=== PATIENT | male | born 1980 | race African-American/Black ===

== ENCOUNTER 2020-11-10 18:34 | Emergency (ER) | payer SELFPAY ==
[~2020-11-10] VITALS: Ht 172.7 cm; Wt 61.3 kg
[2020-11-10 20:09] VITALS: BP 111/90
[2020-11-10] MEDS ORDERED: IBUPROFEN 200 MG TABLET. PO ONE (20:15)
--- NOTE | 2020-11-10 20:54 | RAD ---
XR EXAM OF ANKLE_LEFT 3V 11/10/2020 8:25 PM INDICATION: Twisted ankle COMPARISON: None available. TECHNIQUE: 3 views of the left ankle are provided. FINDINGS/ IMPRESSION: There is no acute fracture or dislocation. Joint spaces are maintained. Bone mineralization is within normal limits. Mild ankle soft tissue tissue swelling. There is no soft tissue gas or osseous erosio n. No radiopaque foreign body. Electronically signed by: Mila Newsome MD (11/10/2020 8:51 PM) BENJAIMN
--- NOTE | 2020-11-10 21:54 | PHYS DOC ---
Past Medical History Past Medical History: No Pertinent History (CHRISS HOWELL APRN) Past Surgical History: No Surgical History (CHRISS HOWELL APRN) Smoking Status: Never Smoker Alcohol Use: Occasionally Drug Use: None (CHRISS HOWELL APRN) General Adult EDM: Chief Complaint: FOOT INJURY PAIN HPI: HPI: Patient is a 40-year-old male presents emergency department complaining he rolled his ankle yesterday approximately 5 PM. Patient rates his pain at a 2 out of 10 pain. Denies other physical complaints or physical injury reports taking a 200 mg Motrin tablet at approximately 1730 today patient denies allergies to medications. (CHRISS HOWELL APRN) Review of Systems: Review of Systems: 14 body systems of review of systems have been reviewed. See HPI for pertinent positives and negative responses, otherwise all other systems are negative, nonpertinent or noncontributory. Constitutional: Negative except as outlined in HPI above. Skin: Negative except as outlined in HPI above. Eyes: Negative except as outlined in HPI above. HENT: Negative except as outlined in HPI above. Respiratory: Negative except as outlined in HPI above. Cardiovascular: Negative except as outlined in HPI above. GI: Negative except as outlined in HPI above. : Negative except as outlined in HPI above. Musculoskeletal: Negative except as outlined in HPI above. Integument: Negative except as outlined in HPI above. Neurologic: Negative except as outlined in HPI above. Endocrine: Negative except as outlined in HPI above. Lymphatic: Negative except as outlined in HPI above. Psychiatric: Negative except as outlined in HPI above. (CHRISS HOWELL APRN) Heart Score: C/O Chest Pain: No Risk Factors: Risk Factors: DM, Current or recent (<one month) smoker, HTN, HLP, family history of CAD, obesity. Risk Scores: Score 0 - 3: 2.5% MACE over next 6 weeks - Discharge Home Score 4 - 6: 20.3% MACE over next 6 weeks - Admit for Clinical Observation Score 7 - 10: 72.7% MACE over next 6 weeks - Early Invasive Strategies (CHRISS HOWELL APRN) Current Medications: Current Medications Medications (Trade) Dose Ordered Sig/Karen Start Time Stop Time Status Last Admin Dose Admin Ibuprofen (Motrin) 600 mg 1X ONCE 11/10/20 20:15 11/10/20 20:16 DC 11/10/20 20:46 600 MG (CHRISS HOWELL APRN) Allergies: Allergies: Allergies Coded Allergies Type Severity Reaction Last Updated Verified No Known Drug Allergies 11/07/15 No (CHRISS HOWELL APRN) Physical Exam: PE: Constitutional: Well developed, well nourished, no acute distress, non-toxic appearance. 40-year-old male in no apparent distress. HENT: Normocephalic, atraumatic. Eyes: Conjunctiva normal, no discharge. Neck: Normal range of motion, no stridor. Cardiovascular: No cyanosis appreciated, distal cap refill less than 2 seconds. Lungs & Thorax: Patient is in no respiratory distress, no audible adventitious lung sounds appreciated. Abdomen: Nontender, no abnormalities noted. Skin: Warm, dry, no erythema, no rash. Back: No tenderness, no deformities. Extremities: No tenderness, no cyanosis, no clubbing, ROM intact, no edema. Except for left ankle, lateral malleolus swelling, limited passive range of motion related to pain, 2+ dorsalis pedis/posterior tibial pulse. Distal cap refills less than 2 seconds per no pain of the proximal tib-fib area appreciated. No deformity, no crepitus appreciated. Neurologic: Alert and oriented X 3, normal motor function, normal sensory function, no focal deficits noted. Psychologic: Affect normal, judgement normal, mood normal. (CHRISS HOWELL APRN) Current Patient Data: Vital Signs: Vital Signs Date Time Temp Pulse Resp B/P (MAP) Pulse Ox O2 Delivery O2 Flow Rate FiO2 11/10/20 20:09 97.7 105 16 111/90 (97) 100 Room Air 97.7 (CHRISS HOWELL APRN) EKG: EKG: [] (CHRISS HOWELL APRN) Radiology/Procedures: Radiology/Procedures: PATIENT: MARQUES AREVALO ACCOUNT: [id number] : 1980 LOCATION: ER AGE: 40 SEX: M EXAM STATUS: REG ER ORD. PHYSICIAN: CHRISS HOWELL APRN REASON: Twisted ankle PROCEDURE: ANKLE LEFT 3V XR EXAM OF ANKLE_LEFT 3V 11/10/2020 8:25 PM INDICATION: Twisted ankle COMPARISON: None available. TECHNIQUE: 3 views of the left ankle are provided. FINDINGS/ IMPRESSION: There is no acute fracture or dislocation. Joint spaces are maintained. Bone mineralization is within normal limits. Mild ankle soft tissue tissue swelling. There is no soft tissue gas or osseous erosion. No radiopaque foreign body. Electronically signed by: Mila Newsome MD (11/10/2020 8:51 PM) [facility] (CHRISS HOWELL APRN) Course & Med Decision Making: Course & Med Decision Making Pertinent Labs and Imaging studies reviewed. (See chart for details) 40-year-old male, vital signs reviewed, presents to the emergency department concerning ankle pain after twisting ankle yesterday evening. Physical examination consistent with patient's explanation of events. Will order x-ray of left ankle, give pain medication in the ED today. X-ray nonconcerning for acute fracture, will Mario wrap/ankle stirrup splint, RICE therapy. Patient is amenable to ED discharge planning. Discussed with the pat ient all findings and diagnostic testing as well as the need to follow-up with their primary care provider for further evaluation and treatment or return to the ED if any new or worsening symptoms. Strict return precautions were also discussed at length, the patient voiced understanding and agreement with the discharge planning. The patient was nontoxic in appearance, in no apparent distress, and hemodynamically stable at the time of disposition. (CHRISS HOWELL APRN) Course & Med Decision Making I was the Attending physician on the above date of service of this patient. This patient was evaluated, examined, treated, and dispositioned from the emergency department by the mid-level practitioner. Although I was working at the time , no assistance was requested. Electronically signed, Esequiel Breaux DO (ESEQUIEL BREAUX DO) Annie Disclaimer: Annie Disclaimer: This electronic medical record was generated, in whole or in part, using a voice recognition dictation system. (CHRISS HOWELL APRN) Departure Departure Impression: Primary Impression: Left ankle sprain Qualified Codes: S93.402A - Sprain of unspecified ligament of left ankle, initial encounter Disposition: HOME / SELF CARE / HOMELESS Condition: GOOD Referrals: NO PCP (PCP) THELMA NOLAND MD Patient Instructions: Ankle Sprain Additional Instructions: You were seen for left ankle pain after rolling her ankle yesterday afternoon. An x-ray was performed, there is no broken ankle. Please use RICE therapy as we discussed. Use ankle stirrup splint for comfort over the next 5 to 7 days. I have given a correctional treatment specialist to follow-up with if ongoing ankle pain greater than 7 days. Otherwise follow-up with your primary care physician for ongoing pain management. Please return to the emergency department for worsening symptoms or other concerns. Thank you for visiting our Emergency Department. It was a pleasure taking care of you today in the emergency department and we appreciate you trusting us with your care. If any additional problems come up don't hesitate to return to visit us. Please follow up with your primary care provider so they can plan additional care if needed and know about the problem that you had. If symptoms worsen come back to the Emergency Department. Any concerning symptoms that start such as chest pain, shortness of air, weakness or numbness on one side of the body, running high fevers or any other concerning symptoms return to the ER. EMERGENCY DEPARTMENT GENERAL DISCHARGE INSTRUCTIONS Thank you for coming to [facility] Emergency Department (ED) today and trusting us with you care. We trust that you had a positive experience in our Emergency Department. If you wish to speak to the department management, you may call the Director at [phone]. YOUR FOLLOW UP INSTRUCTIONS ARE FOLLOWS: 1. Do you have a private Doctor? If you do not have a private doctor, please ask for a resource list of physicians or clinics that may be able to assist you with follo w up care. 2. The Emergency Physicain has interpreted your x-rays. The X-Ray specialist will also review them. If there is a change in the findings, you will be notified in 48 hours when at all possible. 3. A lab test or culture has been done, your results will be reviewed and you will be notified if you need a change in treatment. ADDITIONAL INSTRUCTIONS AND INFORMATION: 1. Your care today has been supervised by a physician who is specially trained in emergency care. Many problems require more than one evaluation for a complete diagnosis and treatment. We recommend that you schedule your follow up appointment as rec ommended to ensure complete treatment of you illness or injury. If you are unable to obtain follow up care and continue to have a problem, or if your condition worsens, we recommend that you return to the ED. 2. We are not able to safely determine your condition over the phone nor are we able to give sound medical advice over the phone. For these safety reasons, if you call for medical advice we will ask you to come to the ED for further evaluation. 3. If you have any questions regarding these discharge instructions please call the ED at [phone]. SAFETY INFORMATION: In the interest of safety, wellness, and injury prevention; we encourage you to wear your sealbelt, if you smoke; quite smoking, and we encourage family to use a protective helmet for bicycling and other sporting events that present an increased risk for head injury. IF YOUR SYMPTOMS WORSEN OR NEW SYMPTOMS DEVELOP, OR YOU HAVE CONCERNS ABOUT YOUR CONDITION; OR IF YOUR CONDITION WORSENS WHILE YOU ARE WAITING FOR YOUR FOLLOW UP APPOINTMENT; EITHER CONTACT YOUR PRIMARY CARE DOCTOR, THE PHYSICIAN WHOSE NAME AND NUMBER YOU WERE GIVEN, OR RETURN TO THE ED IMMEDIATELY. CHRISS HOWELL APRN Nov 10, 2020 21:54 ESEQUIEL BREAUX DO Nov 12, 2020 01:04
== END 2020-11-10 22:13 | disposition home or self-care (01) ==
LOC: ER 18:34
DX: S93.402A Sprain of unspecified ligament of left ankle, initial encounter (principal); X50.9XXA Other and unspecified overexertion or strenuous movements or postures, initial encounter; Y93.89 Activity, other specified; Y92.89 Other specified places as the place of occurrence of the external cause; Y99.8 Other external cause status
CPT/HCPCS: 29515; 73610; 99283

== ENCOUNTER 2021-02-27 03:04 | Emergency (ER) | payer SELFPAY ==
[~2021-02-27] VITALS: Ht 175.3 cm; Wt 61.4 kg
[2021-02-27 03:15] VITALS: BP 142/99
[2021-02-27] MEDS ORDERED: KETOROLAC 30 MG/ML VIAL. IM ONE (04:00)
[2021-02-27] MEDS ORDERED: DEXAMETHASONE 4 MG TABLET PO ONE (04:00)
--- NOTE | 2021-02-27 04:09 | PHYS DOC ---
Past Medical History Past Medical History: No Pertinent History Past Surgical History: No Surgical History Smoking Status: Never Smoker Alcohol Use: None Drug Use: None, Marijuana General Adult EDM: Chief Complaint: BACK PAIN OR INJURY HPI: HPI: Mr. Garzon is a 40 yo male who presents to the ED with low back pain. Patient states the pain started yesterday all of the sudden without an inducing factor. He states the pain is found in the left lumbar region and is constant, dull and radiates to the left leg posteriorly. He characterizes the tenderness 10/10 on pain scale but is not endorsing any muscle weakness. The pain worsens laying down or when leaning forward. Patient denies any red flag symptoms- loss of bowel or bladder control. Review of Systems: Review of Systems: Constitutional: Denies fever, endorsing chills Eyes: Denies redness or eye pain HENT: Denies nasal congestion or sore throat Respiratory: Denies cough or shortness of breath Cardiovascular: Denies chest pain or palpitations GI: Denies abdominal pain, nausea, or vomiting, denies loss of bowel control : Denies dysuria or hematuria, denies loss of bladder control Musculoskeletal: Endorsing back pain denies joint pain Integument: Denies rash or skin lesions Neurologic: Denies headache, focal weakness or sensory changes Complete systems were reviewed and found to be within normal limits, except as documented in this note. Heart Score: C/O Chest Pain: N/A Allergies: Allergies: Allergies Coded Allergies Type Severity Reaction Last Updated Verified No Known Drug Allergies 11/07/15 No Physical Exam: PE: Constitutional: Well developed, well nourished, no acute distress, non-toxic appearance HENT: Normocephalic, atraumatic Eyes: PERRL, EOMI, conjunctiva normal, no discharge Neck: Normal range of motion, no tenderness, supple Lungs & Thorax: No respiratory distress, equal chest rise and fall Abdomen: Soft, no tenderness Skin: Warm, dry, no erythema, no rash Back: lumbar tenderness, no CVA tenderness Extremities: left extremity tenderness, ROM intact, no edema Neurologic: Alert and oriented X 3, normal motor function, normal sensory function, no focal deficits noted Psychologic: Affect normal, judgment normal Current Patient Data: Vital Signs: Vital Signs Date Time Temp Pulse Resp B/P (MAP) Pulse Ox O2 Delivery O2 Flow Rate FiO2 02/27/21 03:15 97.9 106 13 142/99 (113) 99 Room Air 97.9 EKG: EKG: [] Radiology/Procedures: Radiology/Procedures: [] Course & Med Decision Making: Course & Med Decision Making Mr. Garzon is a 40 yo male who presents to the ED with low back pain. Due to acute symptomatic onset and lack of bowel/ bladder control; the patient's most probable cause for back pain is neuropathic or muscular in nature. In the ED, patient was given a dose of tramadol. Patient will be discharged with tramadol, steroids and ibuprofen with follow up to PMR. Patient stable for discharge with outpatient follow-up with PCP and PMR. Discussed findings and plan with patient, who acknowledges understanding and agreement. Annie Disclaimer: Annie Disclaimer: This electronic medical record was generated, in whole or in part, using a voice recognition dictation system. Departure Departure Impression: Primary Impression: Back pain Additional Impression: Sciatica Disposition: HOME / SELF CARE / HOMELESS Condition: STABLE Referrals: NO PCP (PCP) WES C[place]AND MD Patient Instructions: Back Pain, Adult, [id number], Sciatica, [id number] Additional Instructions: Ice area of discomfort 20 minutes on the leave off for next 20 minutes. Repeat several times daily for the next few days. After 72 hours may introduce heat. Use [id number] ibuprofen and or Tylenol for pain or discomfort. Scripts Prednisone (PREDNISONE) 20 Mg Tablet 2 TAB PO DAILY, #8 TAB Start this prescription tomorrow, 02/28/21 Prov: CHRISS MCDONOUGH DO 02/27/21 Orphenadrine Citrate (ORPHENADRINE CITRATE) 100 Mg Tablet.er 100 MG PO BID PRN for MUSCLE PAIN, #14 TAB Prov: CHRISS MCDONOUGH DO 02/27/21 CHRISS MCDONOUGH DO Feb 27, 2021 04:09
[2021-02-27] MEDS ORDERED: ORPH100T PO (04:16)
[2021-02-27] MEDS ORDERED: PRED20TA PO (04:16)
== END 2021-02-27 04:23 | disposition home or self-care (01) ==
LOC: ER 03:04
DX: M54.42 Lumbago with sciatica, left side (principal)
CPT/HCPCS: 96372; 99283; J1885